=== PATIENT | female | born 1995 | race Caucasian/White ===

== ENCOUNTER 2023-11-18 15:10 | Emergency (ER) | payer BC, SELFPAY ==
[2023-11-18 15:17] VITALS: BP 163/77
[2023-11-18 15:38] VITALS: BMI 33.2
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
[2023-11-18 16:47] LABS: HCG, Urine Qualitative Screen Positive
[2023-11-18 17:33] VITALS: BP 128/78
[2023-11-18 17:33] LABS: % Basophils 0.4 % (0-2); % Eosinophils 0.4 % (0-6); % Immature Granulocytes 0.2 % (0-0.5); % Lymphocytes 16.1 % (20.5-51.1); % Monocytes 5.5 % (1.7-9.3); % Neutrophils 77.4 % (42.2-75.2); Absolute Basophils 0.1 10^3/uL (0-0.2); Absolute Eosinophils 0.1 10^3/uL (0-0.7); Absolute Lymphocytes 1.9 10^3/uL (1.2-3.4); Absolute Monocytes 0.7 10^3/uL (0.1-0.6); Absolute Neutrophils 9.3 10^3/uL (1.4-6.5); Hematocrit 34.4 % (37.0-47.0); Hemoglobin 12.3 g/dL (12.0-16.0); Mean Corp Hgb Conc. 35.8 g/dL (33.0-37.0); Mean Corpuscular Hgb 32.1 pg (27.0-31.0); Mean Corpuscular Volume 89.8 fL (81.0-99.0); Mean Platelet Volume 11.4 fL (7.4-10.4); Nucleated Red Blood Cells % 0 %; Platelet Count 249 10^3/uL (130-400); Red Blood Cell Count 3.83 10^6/uL (4.20-5.40); Red Cell Dist. Width 13.6 % (11.5-14.5)
[2023-11-18 18:01] LABS: Beta HCG Quantitative 588.39 mIU/ml
[2023-11-18 20:31] VITALS: BP 129/66
== END 2023-11-18 21:21 | disposition home or self-care (01) ==
LOC: EMR 15:10
PROVIDERS: Physician Assistant; EMERGENCY PHYSICIAN Emergency Medicine; FAMILY PHYSICIAN Family Medicine Sports Medicine
DX: S16.1XXA Strain of muscle, fascia and tendon at neck level, initial encounter (principal); S09.90XA Unspecified injury of head, initial encounter; S05.12XA Contusion of eyeball and orbital tissues, left eye, initial encounter; S80.12XA Contusion of left lower leg, initial encounter; S80.11XA Contusion of right lower leg, initial encounter; N93.9 Abnormal uterine and vaginal bleeding, unspecified; R51.9 Headache, unspecified; M54.50 Low back pain, unspecified; Y04.8XXA Assault by other bodily force, initial encounter; T71.193A Asphyxiation due to mechanical threat to breathing due to other causes, assault, initial encounter; F90.9 Attention-deficit hyperactivity disorder, unspecified type
CPT/HCPCS: 99284; 70450; 70486; 72125; 72131; 76801; 76817; 81025; 84702; 85025

== ENCOUNTER → 2024-06-30 13:40 | Outpatient (REF) | payer BC, SELFPAY ==
[2024-07-04 01:44] LABS: Chlamydia trachomatis,ThinPrep Negative (Negative); Neisseria gonorrhoeae,ThinPrep Negative (Negative); Specimen Source Cervical
[2024-07-04 04:26] LABS: HPV, High Risk Not Detected; HPV, High Risk Source Cervical
== END ==
LOC: CPAP 13:40
PROVIDERS: ATTENDING PHYSICIAN Nurse Practitioner Family
DX: Z34.91 Encounter for supervision of normal pregnancy, unspecified, first trimester (principal)
CPT/HCPCS: 87491; 87591; 87624

== ENCOUNTER → 2024-07-13 08:08 | Outpatient (REF) | payer BC, SELFPAY | LOC: PNTC 08:08 | PROVIDERS: ATTENDING PHYSICIAN Nurse Practitioner Family | DX: O99.320 Drug use complicating pregnancy, unspecified trimester (principal); O35.8XX0 Maternal care for other (suspected) fetal abnormality and damage, not applicable or unspecified; O99.212 Obesity complicating pregnancy, second trimester; Z36.87 Encounter for antenatal screening for uncertain dates; O09.32 Supervision of pregnancy with insufficient antenatal care, second trimester | CPT/HCPCS: 76811; 76817 ==

== ENCOUNTER → 2024-09-28 07:59 | Outpatient (REF) | payer BC, SELFPAY | LOC: PNTC 07:59 | PROVIDERS: ATTENDING PHYSICIAN Obstetrics & Gynecology | DX: O99.210 Obesity complicating pregnancy, unspecified trimester (principal); O09.30 Supervision of pregnancy with insufficient antenatal care, unspecified trimester | CPT/HCPCS: 76816 ==

== ENCOUNTER → 2024-10-14 13:31 | Outpatient (REF) | payer BC, SELFPAY | LOC: CLAB 13:31 | PROVIDERS: ATTENDING PHYSICIAN Student in an Organized Health Care Education/Training Program | DX: Z36.85 Encounter for antenatal screening for Streptococcus B (principal) | CPT/HCPCS: 87070; 87077; 87147 ==

== ENCOUNTER → 2024-10-15 14:41 | Outpatient (REF) | payer BC, SELFPAY ==
[2024-10-15 15:12] LABS: Urine Character Clear (Clear)
[2024-10-15 15:23] LABS: Urine Squamous Cell 16-20 /LPF (Few)
[2024-10-15 15:24] LABS: Urine Red Blood Cell 0-2 /HPF (0-2)
[2024-10-15 16:34] LABS: Hematocrit 27.8 % (37.0-47.0); Hemoglobin 9.7 g/dL (12.0-16.0); Mean Corp Hgb Conc. 34.9 g/dL (33.0-37.0); Mean Corpuscular Volume 93.0 fL (81.0-99.0); Nucleated Red Blood Cells % 0 %; Platelet Count 161 10^3/uL (130-400); Red Cell Dist. Width 14.1 % (11.5-14.5)
[2024-10-15 16:52] LABS: 1 Hour after 50gm 145 mg/dl
[2024-10-15 17:04] LABS: Beta HCG Quantitative 6913.70 mIU/ml
[2024-10-15 17:28] LABS: Hepatitis B Surface Antigen Negative (Negative)
[2024-10-15 17:46] LABS: Hepatitis C Antibody Negative (Negative)
[2024-10-16 08:51] LABS: Glycohemoglobin (HgbA1c) 4.6 % (4.0-5.6)
[2024-10-19 14:19] LABS: Syphilis/T. pallidum Ab Reflex Negative (Negative)
== END ==
LOC: REG 14:41
PROVIDERS: ATTENDING PHYSICIAN Student in an Organized Health Care Education/Training Program; FAMILY PHYSICIAN Family Medicine Sports Medicine
DX: Z34.93 Encounter for supervision of normal pregnancy, unspecified, third trimester (principal)
CPT/HCPCS: 36415; 81003; 81015; 82950; 83036; 84702; 85025; 86704; 86706; 86762; 86780; 86803; 87086; 87340; 87389

== ENCOUNTER 2024-10-29 09:58 | Inpatient (IN) | payer BC, SELFPAY ==
[2024-10-29 10:07] VITALS: BP 130/76; BMI 35.0
[2024-10-29] MEDS: LR 1000 IV (10:52)
[2024-10-29 11:00] LABS: Hematocrit 36.0 % (37.0-47.0); Hemoglobin 12.4 g/dL (12.0-16.0); Mean Corp Hgb Conc. 34.4 g/dL (33.0-37.0); Mean Corpuscular Volume 94.0 fL (81.0-99.0); Nucleated Red Blood Cells % 0 %; Platelet Count 169 10^3/uL (130-400); Red Cell Dist. Width 14.1 % (11.5-14.5)
[2024-10-29] MEDS: PENICILLIN 110 UNITS IV (11:07)
[2024-10-29] MEDS: SUBLIMAZE 100 MCG EPIDURAL (11:52)
[2024-10-29] MEDS: FENTANYL/BUPIVACAINE 100 EPIDURAL (11:53)
[2024-10-29] MEDS: ZITHROMAX INFUSION 250 IV (12:59)
[2024-10-29 13:09] LABS: Cord ABG B.E. - POC -4.9 mmol/L; Cord ABG HCO3 - POC 23 mmol/L; Cord ABG O2 Sat % - POC 27.9 %; Cord ABG pCO2 - POC 53 mmHg; Cord ABG pH - POC 7.25; Cord ABG pO2 - POC 22 mmHg
[2024-10-29 13:15] LABS: Cord VBG B.E. - POC -5.3 mmol/L; Cord VBG HCO3 - POC 21 mmol/L; Cord VBG O2 Sat % - POC 29.9 %; Cord VBG pCO2 - POC 42 mmHg; Cord VBG pH - POC 7.30; Cord VBG pO2 - POC 21 mmHg
[2024-10-29] MEDS: ANCEF 10 IV (13:58)
[2024-10-29] MEDS: TORADOL 15 MG IV ×2 (14:56→20:29)
[2024-10-29] MEDS: COLACE 100 MG PO (20:29)
[2024-10-30] MEDS: TORADOL 15 MG IV ×2 (03:31→10:45)
[2024-10-30] MEDS: TYLENOL 650 MG PO ×3 (03:31→23:04)
[2024-10-30 04:09] LABS: Hematocrit 29.9 % (37.0-47.0); Hemoglobin 10.3 g/dL (12.0-16.0); Mean Corp Hgb Conc. 34.4 g/dL (33.0-37.0); Mean Corpuscular Volume 92.6 fL (81.0-99.0); Platelet Count 163 10^3/uL (130-400); Red Cell Dist. Width 13.7 % (11.5-14.5)
[2024-10-30] MEDS: PRENATAL PLUS 1 TABLET PO (07:48)
[2024-10-30] MEDS: COLACE 100 MG PO ×2 (07:48→20:03)
[2024-10-30] MEDS: FEOSOL 325 MG PO (07:48)
--- NOTE | 2024-10-30 09:07 | W.PN.ANS.POP ---
Anesthesia Post Operative
- Anesthesia Post Op Note
Vital Signs Stable-See Nursing Note: Yes
Airway Patent: Yes
Adequate Pain Control: Yes
Change in Mental Status: No
Current Postoperative Nausea & Vomiting: No
Anesthesia Complications: No
General Anesthetic Recall: No
Unplanned Admission: No
Post Op Hydration Adequate: Yes
[2024-10-30] MEDS: MOTRIN 600 MG PO ×2 (16:45→23:04)
[2024-10-30] MEDS: ROXICODONE 5 MG PO (20:14)
[2024-10-31] MEDS: ROXICODONE 10 MG PO ×3 (02:01→20:09)
[2024-10-31] MEDS: MOTRIN 600 MG PO ×3 (05:31→21:56)
[2024-10-31] MEDS: TYLENOL 650 MG PO ×3 (05:32→21:57)
[2024-10-31] MEDS: PRENATAL PLUS 1 TABLET PO (08:36)
[2024-10-31] MEDS: COLACE 100 MG PO ×2 (08:36→20:05)
[2024-10-31] MEDS: FEOSOL 325 MG PO (08:37)
[2024-11-01] MEDS: ROXICODONE 5 MG PO ×2 (01:09→08:17)
[2024-11-01] MEDS: MOTRIN 600 MG PO (05:41)
[2024-11-01] MEDS: TYLENOL 650 MG PO (05:42)
[2024-11-01] MEDS: PRENATAL PLUS 1 TABLET PO (08:16)
[2024-11-01] MEDS: FEOSOL 325 MG PO (08:16)
[2024-11-01] MEDS: COLACE 100 MG PO (08:16)
--- NOTE | 2024-11-01 09:49 | W.DS.TRANS ---
DC Summary - Salicylic Acid Blender
-
Discharge Instructions:
Discharge Diagnosis/Procedures section
Instructions:
Stand-Alone Forms: LDRP Delivery
Changes to Home Medications: No
Discharge Medications:
DC Medications w/original date entered in [facility]
vitamin-ferrous fumarate 28 mg iron-folic acid 800 mcg tablet 1 ea PO DAILY Supplement 02/15/21
ferrous sulfate 325 mg (65 mg iron) tablet 325 mg PO DAILY Supplement 10/29/24
acetaminophen 325 mg tablet 650 mg (2 x 325 mg) PO Q4HPRN PRN mild pain #0 tabs 11/01/24
docusate sodium 100 mg capsule 100 mg PO BID #0 caps 11/01/24
ibuprofen 600 mg tablet 600 mg PO Q6HPRN PRN cramps #30 tabs 11/01/24
oxycodone 5 mg tablet 5 mg PO Q4HPRN PRN moderate pain #10 tabs 11/01/24
sennosides 8.6 mg tablet (Lizbet-sophie) 17.2 mg (2 x 8.6 mg) PO HSPRN PRN constipation #0 tabs 11/01/24
simethicone 80 mg chewable tablet 80 mg PO TIDPRN PRN flatulence #0 tabs 11/01/24
Home Medication Changes
Pending Results: No
Total time spent discharging patient (in min): 20
[2024-11-01] MEDS: ADACEL 0.5 ML IM (10:23)
[2024-11-02 14:03] LABS: Syphilis/T. pallidum Ab Reflex Negative (Negative)
== END 2024-11-01 11:39 | disposition home or self-care (01) | DRG 788 ==
LOC: LDRP 09:58
PROVIDERS: ADMITTING PHYSICIAN Obstetrics & Gynecology; FAMILY PHYSICIAN Family Medicine Sports Medicine
PROC: 10D00Z1 Extraction of Products of Conception, Low, Open Approach (ICD-10-PCS; 2024-10-29)
PROC: 4A1HXCZ Monitoring of Products of Conception, Cardiac Rate, External Approach (ICD-10-PCS; 2024-10-29)
DX: O99.824 Streptococcus B carrier state complicating childbirth (principal); I95.2 Hypotension due to drugs; O74.2 Cardiac complications of anesthesia during labor and delivery; O99.42 Diseases of the circulatory system complicating childbirth; F90.9 Attention-deficit hyperactivity disorder, unspecified type; O76 Abnormality in fetal heart rate and rhythm complicating labor and delivery; O99.214 Obesity complicating childbirth; O99.344 Other mental disorders complicating childbirth; Z37.0 Single live birth; Z3A.39 39 weeks gestation of pregnancy
CPT/HCPCS: 36415; 85025; 85027; 86780; 86850; 86900; 86901; 88307; 90715